=== PATIENT | female | born 1975 | race Caucasian/White ===

== ENCOUNTER 2020-07-11 07:22 | Emergency (ER) | payer OTHER ==
[~2020-07-11] VITALS: Ht 152.4 cm; Wt 59.0 kg
[~2020-07-11 07:22] MED LIST: BENADRYL25 MG PO; CLARITIN10 MG PO; MECLIZINE HCL25 MG PO; MELATONIN5 M2 PO; SUDAFED 12-HOU120 MG PO; ZOFRAN4 MG SL
[2020-07-11] MEDS ORDERED: HYDROCODON-ACE1 EA10 PO (07:38)
[2020-07-11] MEDS ORDERED: CLARITHROMYCIN500 MG PO (07:38)
[2020-07-11] MEDS ORDERED: ACETAMINOPHEN500 MG PO (07:40)
== END 2020-07-11 09:26 | disposition home or self-care (01) ==
LOC: ED 07:22
DX: J95.89 Other postprocedural complications and disorders of respiratory system, not elsewhere classified (principal); J01.90 Acute sinusitis, unspecified; Z88.0 Allergy status to penicillin; Z79.899 Other long term (current) drug therapy; Z79.891 Long term (current) use of opiate analgesic
CPT/HCPCS: 99283

== ENCOUNTER 2021-10-05 05:55 | Day surgery (SDC) | payer OTHER ==
[~2021-10-05] VITALS: Ht 152.4 cm; Wt 55.0 kg
[~2021-10-05 05:55] MED LIST changes: +ACETAMINOPHEN500 MG PO; +CLARITHROMYCIN500 MG PO; +HYDROCODON-ACE1 EA10 PO; +IRON18 MG PO; +PEPCID AC10 MG PO; +PRILOSEC OTC20 MG PO; +SINGULAIR10 MG PO; +ZOLOFT25 MG PO
[2021-10-05] MEDS ORDERED: XYZAL5 MG PO (06:23)
[2021-10-05] MEDS ORDERED: OXYCODON-ACETA1 EAC2 PO (08:34)
[2021-10-05] MEDS ORDERED: ACETAMINOPHEN500 MG PO (08:34)
[2021-10-05] MEDS ORDERED: IBUPROFEN600 MG PO (08:34)
--- NOTE | 2021-10-05 08:40 | NUR ---
10/05/21 0840 BUNNY DUPREE 0861-PATIENT ARRIVES TO PACU ON 8L VIA MASK. PATIENT IS NONAROUSABLE TO TACTILE STIMULI. ORAL AIRWAY IN PLACE. RESP EVEN.
--- NOTE | 2021-10-05 10:57 | NUR ---
PT EATING AND DRINKING WITH NO CONCERNS. PT RPEORTS PAIN 5-6/10 AND PAIN MEDICATION GIVEN. EDUCATION GIVEN ON PAIN MEDICATION. PT RESTING IN BED AND VSS. PT DROWSY.
--- NOTE | 2021-10-05 12:01 | NUR ---
PT UP TO BATHROOM AND LAP SITE DRAINAGE NOTED. SITE REINFORCED WITH BANDAIDS. PT BACK TO BED AND AT BEDSIDE.
--- NOTE | 2021-10-05 12:40 | NUR ---
PT DC WITH AND DRESSED HERSELF. PT REPORTS TOLERBALE PAIN AND NO NAUSEA. VSS. EDUCATION GIVEN ON PAIN MEDICATION.
--- NOTE | 2021-10-08 10:20 | PATH ---
[facility] [address] [facility] [place], [place] [address] Signed SPECIMEN(S): A GALLBLADDER SPECIMEN SOURCE: A. GALLBLADDER CLINICAL HISTORY: Laparoscopic cholecystectomy. Chronic cholecystitis with calculus. FINAL PATHOLOGIC DIAGNOSIS: Gallbladder, cholecystectomy: - Chronic cholecystitis with cholesterol polyps. NAL:cml:C2NR MICROSCOPIC EXAMINATION: Histologic sections of all submitted blocks are examined by light microscopy. These findings, together with the gross examination, support the pathologic diagnosis. GROSS DESCRIPTION: The specimen, labeled "SS, gallbladder," is received in formalin and consists of Specimen: Previously opened gallbladder. Dimensions: 6.7 cm in length and 4.7 cm in inner circumference. Serosa: Violaceous and smooth. Cystic Duct: Unobstructed. Calculi: Calculi are not identified within the container or within the gallbladder. Mucosa: Green-fields and velvety. It shows three small yellow polyps that measure up to 0.1 cm in diameter. The polyps are entirely submitted. Wall thickness: 0.2 cm. Lymph node: No pericystic lymph nodes are grossly identified. Additional: None. Form Setter/Driver sections are submitted in cassette (A1). JS (under the direct supervision of a pathologist) The Gross Description was prepared using a voice recognition system. The report was reviewed for accuracy; however, sound-alike word errors, addition and/or deletions may occur. If there is any question about this report, please contact Client Services. PERFORMING LABORATORY: The technical component was performed by [employer], Nisa Christensen, PATIENT NAME: RAULJUAN LEONARD PATHOLOGY DATE OF : 73 REPORT #: [id number] PHYSICIAN: HENRI BARRIENTOS PCP: HUE LEO PA-C REPORT IS CONFIDENTIAL AND NOT TO BE RELEASED WITHOUT AUTHORIZATION [facility] [address] [place], [place] [address] [place] [address] (Laminating Machine Tender: Graciela Gonzalez MD; CLIA# [id number]). Professional interpretation was performed by [employer] ([employer]) [facility], [address] [address] (CLIA# [id number]). Diagnostician: Tamiko Leija MD Pathologist Electronically Signed 10/08/2021 Copies: ~ PATIENT NAME: JUAN CARTER PATHOLOGY DATE OF : 73 REPORT #: [id number] PHYSICIAN: HENRI BARRIENTOS PCP: HUE LEO PA-C REPORT IS CONFIDENTIAL AND NOT TO BE RELEASED WITHOUT AUTHORIZATION
--- NOTE | 2021-10-08 21:03 | OR ---
[facility] [address] [place], [place] [address] Signed DATE OF OPERATION: 10/05/2021 SURGEON: Luigi Galeas MD PREOPERATIVE DIAGNOSIS: Chronic acalculous cholecystitis. POSTOPERATIVE DIAGNOSIS: Chronic acalculous cholecystitis with adherent cholesterol debris to gallbladder wall. PROCEDURES: 1. Laparoscopic cholecystectomy with intraoperative cholangiogram. 2. Surgeon-directed fluoroscopy. ANESTHESIA: General endotracheal, Bubba Brown CRNA and local 10 mL of 0.25% Marcaine with epinephrine. INDICATION: This 46-year-old white woman is a patient of HELLEN Baker and has had symptoms highly typical of biliary disease including right subcostal and epigastric pain. She has undergone upper endoscopy at [facility] in past, was considered to have reflux related symptoms in the past as well. She notes no benefit from PPI medication. She has had episodes of severe epigastric and right subcostal pain and associated nausea. She takes a "whole-food plant-based diet" generally. She underwent a gallbladder ultrasound on August 30, 2021 as ordered by HELLEN Baker which showed " sludge of the gallbladder including 3 mm echogenic focus suggestive of polyp or adherent soft stone. She has family history of biliary disease in two maternal aunts and a sister. On the high probability that she does have symptomatic biliary disease, I have recommended cholecystectomy preferred by a laparoscopic approach. The risk of bleeding, infection, bile duct injury, need for open procedure, and of course failure to cure her symptoms was reviewed in detail. She understands and wished to proceed. FINDINGS: The gallbladder was chronically inflamed. There was a slightly enlarged pericholecystic lymph node. The cystic duct was rather small. Cholangiogram was normal. The gallbladder once excised showed chronic inflammatory change in the mucosa and some adherent stone debris to the gallbladder wall. She tolerated the procedure well. There were no complications. Electronically Signed By: LUIGI GALEAS MD 10/08/21 0852 PATIENT NAME: JUAN CARTER OPERATIVE REPORT DATE OF : 73 REPORT #: [id number] PHYSICIAN: LUIGI GALEAS MD PCP: DYAN ANDERSON PA-C REPORT IS CONFIDENTIAL AND NOT TO BE RELEASED WITHOUT AUTHORIZATION [facility] [address] [place], [place] [address] Signed DESCRIPTION OF PROCEDURE: The patient was brought to the operating room, given a general endotracheal anesthetic. Preoperative antibiotic clindamycin was administered and heparin subcutaneously administered. After satisfactory general endotracheal anesthesia, the abdomen was prepared with a chlorhexidine solution and draped sterilely. An infraumbilical incision was made and using an open Claudia cannula technique pneumoperitoneum achieved to a level of 14 mmHg of carbon dioxide gas. At that point, there was a failure of the usual Sherron laparoscopic visualization and therefore a bit of a delay occurred obtaining a portable unit for visualization. This was working quite well, though the visual acuity was somewhat less of course. Under direct visualization, three additional trocars were placed in usual configuration in the subxiphoid, right midclavicular, and right anterior axillary line. The gallbladder was elevated cephalad. Had a few adherent adhesions to the duodenum and omentum taken down with blunt and minimal electrocautery dissection. This allowed the gallbladder to be elevated more cephalad and retracted laterally. Using blunt and electrocautery dissection, the triangle of Calot was dissected free identifying a slightly enlarged pericholecystic lymph node. The cystic artery branch was easily identified, doubly clipped and divided and clip was applied across gallbladder cystic duct junction as well. A transverse choledochotomy was made in the cystic duct and using an Barron type cholangiocatheter system, intraoperative cholangiography undertaken using surgeon directed fluoroscopy. Free flow of contrast in biliary tree was noted with prompt emptying into the duodenum. There was no evidence of filling defect, biliary anomalies or other problem. The catheter was removed and the cystic duct was triply clipped and divided. The gallbladder was then dissected free in a retrograde fashion using electrocautery. A small rent was made in the gallbladder, allowing for egress of some clear bile. This was later suctioned free. Using an endobag, the gallbladder was extracted through the infraumbilical port site without problem, opened on the back table and found to have chronic inflammatory change of the mucosa and some adherent stone debris accounting for the ultrasound findings. Irrigation was undertaken in the subhepatic space, which showed no sign of bleeding, bile leak, or other problems. Excess irrigation fluid was suctioned free. The trocars were removed under direct visualization showing no sign of bleeding. The infraumbilical fascial incisions were reapproximated with interrupted 0 Vicryl suture. Irrigation was undertaken in the wounds. 10 mL of 0.25% Marcaine was injected for postoperative analgesic benefit. The skin was closed with interrupted 3-0 Vicryl and Steri-Strips were applied. The patient tolerated the procedure well, was extubated in the operating room having tolerated the procedure well and without complications. Sponge, needle, and instrument counts were reported as correct x3. Electronically Signed By: LUIGI GALEAS MD 10/08/21 2103 PATIENT NAME: JUAN CARTER OPERATIVE REPORT DATE OF : 73 REPORT #: [id number] PHYSICIAN: LUIGI GALEAS MD PCP: DYAN ANDERSON PA-C REPORT IS CONFIDENTIAL AND NOT TO BE RELEASED WITHOUT AUTHORIZATION [address] [place], [place] [address] Signed MD SHIVA Cueto/GRIFFIN /[id number] cc: Dyan Anderson PA-C Copies: DYAN ANDERSON PA-C ~ Electronically Signed By: LUIGI GALEAS MD 10/08/21 2103 PATIENT NAME: JUAN CARTER OPERATIVE REPORT DATE OF : 73 REPORT #: [id number] PHYSICIAN: LUIGI GALEAS MD PCP: DYAN ANDERSON PA-C REPORT IS CONFIDENTIAL AND NOT TO BE RELEASED WITHOUT AUTHORIZATION
== END 2021-10-05 12:40 | disposition home or self-care (01) ==
LOC: DS 05:55
PROVIDERS: ATTEND Surgery
PROC: BF10YZZ Fluoroscopy of Bile Ducts using Other Contrast (ICD-10-PCS; 2021-10-05)
PROC: 0FT44ZZ Resection of Gallbladder, Percutaneous Endoscopic Approach (ICD-10-PCS; principal; 2021-10-05 06:45)
DX: K81.1 Chronic cholecystitis (principal); Z88.0 Allergy status to penicillin; K90.41 Non-celiac gluten sensitivity; E73.9 Lactose intolerance, unspecified; Z87.19 Personal history of other diseases of the digestive system
CPT/HCPCS: 00790; 74300; J0131; J0330; J1100; J1644; J1885; J2300; J2405; J2704; J3475; J7121; Q9967